=== PATIENT | female | born 1945 | race Caucasian/White ===

== ENCOUNTER 2023-05-08 19:54 | Inpatient (IN) | payer MEDICARE ==
--- NOTE | 2023-05-08 20:41 | ED ---
General Adult HPI - General Source: EMS, RN notes reviewed Mode of arrival: EMS Limitations: altered mental status <Arely Perez - Last Filed: 05/09/23 00:38> - History of Present Illness -: unknown Radiation: non-radiation Consistency: constant Improves with: none Associated Symptoms: confusion, loss of appetite, weakness Treatments Prior to Arrival: none <Moe Nation - Last Filed: 05/09/23 20:36> - General Chief complaint: Fall Stated complaint: Fall Time Seen by Provider: 05/08/23 20:08 - History of Present Illness Initial comments: 78-year-old female presents to the emergency department via EMS for fall that occurred today. Patient is a poor historian. Patient is A&O1 at baseline according to EMS. Patient cannot provide history on the fall. EMS states she has pain in her ribs. Patient does not admit to any pain. (Arely Perez) 78-year-old female Lesa was severe dementia unable to provide history. Patient cannot provide answers to questions currently. Family states patient is not acting at her baseline significantly weak complaining of pain does not seem to be acting appropriate and sent DF for evaluation. Patient presents by EMS who does help with history as well as prior charting (Moe Nation) - Related Data Home Medications Medication Instructions Recorded Confirmed Albuterol Inhaler [Ventolin Hfa 2 puff INHALATION RT-Q6H PRN 05/09/23 05/09/23 Inhaler] Apixaban [Eliquis] 5 mg PO BID 05/09/23 05/09/23 Atorvastatin [Lipitor] 40 mg PO HS 05/09/23 05/09/23 Budesonide/Formoterol Fumarate 2 puff INHALATION RT-BID 05/09/23 05/09/23 [Symbicort 160-4.5 Mcg Inhaler] Escitalopram [Lexapro] 20 mg PO DAILY 05/09/23 05/09/23 Omeprazole 20 mg PO DAILY 05/09/23 05/09/23 Solifenacin Succinate 10 mg PO DAILY 05/09/23 05/09/23 Sotalol [Betapace] 40 mg PO Q12H 05/09/23 05/09/23 Tiotropium Rufus [Spiriva] 1 puff INHALATION RT-DAILY 05/09/23 05/09/23 dilTIAZem HCL 120 mg PO DAILY 05/09/23 05/09/23 Allergies Allergy/AdvReac Type Severity Reaction Status Date / Time aspirin Allergy Anaphylaxis Verified 05/09/23 16:01 Review of Systems ROS Other: All systems not noted in ROS Statement are negative. <Arely Perez - Last Filed: 05/09/23 00:38> ROS Other: All systems not noted in ROS Statement are negative. <Moe Nation - Last Filed: 05/09/23 20:36> ROS Statement: Those systems with pertinent positive or pertinent negative responses have been documented in the HPI. Past Medical History Past Medical History: Unable to Obtain, Dementia History of Any Multi-Drug Resistant Organisms: Unobtainable Past Surgical History: Unable to Obtain Past Psychological History: Unable to Obtain Smoking Status: Unknown if ever smoked Past Alcohol Use History: Unable to Obtain Past Drug Use History: Unable to Obtain <Arely Perez - Last Filed: 05/09/23 00:38> General Exam Limitations: altered mental status (A&O x1 at baseline) General appearance: alert, in no apparent distress Head exam: Present: atraumatic, normocephalic, normal inspection Eye exam: Present: normal appearance, PERRL, EOMI ENT exam: Present: normal exam, mucous membranes moist Neck exam: Present: normal inspection. Absent: tenderness, meningismus, lymphadenopathy Respiratory exam: Present: wheezes (mild wheezes bilaterally), chest wall tenderness (right sided). Absent: rales, rhonchi, stridor Cardiovascular Exam: Present: regular rate, normal rhythm, normal heart sounds. Absent: systolic murmur, diastolic murmur, rubs, gallop, clicks GI/Abdominal exam: Present: soft, normal bowel sounds. Absent: distended, tenderness, guarding, rebound, rigid Extremities exam: Present: full ROM, normal capillary refill. Absent: tenderness, pedal edema, joint swelling, calf tenderness Back exam: Present: normal inspection. Absent: tenderness Neurological exam: Present: alert. Absent: oriented X3 (A&O1-2) Psychiatric exam: Present: normal affect, normal mood Skin exam: Present: warm, dry, intact, normal color. Absent: rash <Arely Perez - Last Filed: 05/09/23 00:38> General appearance: alert, in no apparent distress Head exam: Present: atraumatic, normocephalic, normal inspection Eye exam: Present: normal appearance, PERRL, EOMI. Absent: scleral icterus, conjunctival injection, periorbital swelling ENT exam: Present: normal exam, mucous membranes moist Neck exam: Present: normal inspection. Absent: tenderness, meningismus, lymphadenopathy Respiratory exam: Present: normal lung sounds bilaterally. Absent: respiratory distress, wheezes, rales, rhonchi, stridor Cardiovascular Exam: Present: regular rate, normal rhythm, normal heart sounds. Absent: systolic murmur, diastolic murmur, rubs, gallop, clicks GI/Abdominal exam: Present: soft, normal bowel sounds. Absent: distended, tenderness, guarding, rebound, rigid Extremities exam: Present: normal inspection, full ROM, normal capillary refill. Absent: tenderness, pedal edema, joint swelling, calf tenderness Back exam: Present: normal inspection Neurological exam: Present: alert, oriented X3, CN II-XII intact Psychiatric exam: Present: normal affect, normal mood Skin exam: Present: warm, dry, intact, normal color. Absent: rash <Moe Nation B - Last Filed: 05/09/23 20:36> Course <Moe Nation B - Last Filed: 05/09/23 20:36> Vital Signs 05/08/23 05/08/23 05/08/23 19:56 21:10 22:06 Temperature 98.8 F Pulse Rate 74 75 82 Respiratory 18 16 18 Rate Blood Pressure 151/75 152/63 170/70 O2 Sat by Pulse 96 97 98 Oximetry 05/09/23 05/09/23 05/09/23 00:00 01:00 02:13 Temperature Pulse Rate 83 87 80 Respiratory 16 16 16 Rate Blood Pressure 154/62 154/57 126/56 O2 Sat by Pulse 99 97 100 Oximetry 05/09/23 05/09/23 05/09/23 03:00 04:00 05:00 Temperature Pulse Rate 79 81 86 Respiratory 16 18 15 Rate Blood Pressure 126/56 145/60 146/66 O2 Sat by Pulse 100 Oximetry 05/09/23 05/09/23 05/09/23 06:00 08:38 09:02 Temperature Pulse Rate 77 77 79 Respiratory 16 18 17 Rate Blood Pressure 132/58 117/46 127/54 O2 Sat by Pulse 98 99 100 Oximetry 05/09/23 05/09/23 10:01 11:41 Temperature 98.0 F Pulse Rate 83 93 Respiratory 16 18 Rate Blood Pressure 136/57 142/51 O2 Sat by Pulse 96 95 Oximetry - Reevaluation(s) Reevaluation #1: Medical record is reviewed ([place]) Reevaluation #2: Patient symptoms unchanged ([place]) Reevaluation #3: Family informed results questions answered ([place]) Reevaluation #4: Was patient admitted / discharged? Hospital course, mention meds given and route, prescriptions, significant lab abnormalities, going to OR and other pertinent info. @ -78 female to the emergency department for evaluation of altered mental status fall with positive pelvic fracture. Patient admitted for pain control and trying to follow-up in regards to altered mental status whether severe worsening dementia or acute pain induced or other causes. Admitted Undiagnosed new problem with uncertain prognosis? @ -no Drug Therapy requiring intensive monitoring for toxicity (Heparin, Nitro, Insulin, Cardizem)? @ -no Were any procedures done? @ -no Diagnosis/symptom? @ -Pelvic fracture, pain control, altered mental status, weakness, falls Acute, or Chronic, or Acute on Chronic? @ -Acute on chronic Uncomplicated (without systemic symptoms) or Complicated (systemic symptoms)? @ -complicated Side effects of treatment? @ -no Exacerbation, Progression, or Severe Exacerbation? @ -no Poses a threat to life or bodily function? How? (Chest pain, USA, NH, pneumonia, PE, COPD, DKA, ARF, appy, cholecystitis, CVA, Diverticulitis, Homicidal, Suicidal, threat to staff... and all critical care pts) @ -Yes with extreme of age (Moe Nation) Reevaluation #5: Differential Altered Mental Status: Hypoglycemia, DKA, hypercapnia, ETOH, overdose, CO poisoning, trauma, myxedema coma, HTN encephalopathy, infection, encephalitis, psychosis, intercranial hemorrhage, hepatic encephalopathy, meningitis, CVA, this is not meant to be an all-inclusive list (Moe Nation) Medical Decision Making - Lab Data Result diagrams: 05/08/23 00:13 <Arely Perez - Last Filed: 05/09/23 00:38> - Lab Data Result diagrams: 05/08/23 00:13 05/08/23 00:13 - Radiology Data Radiology results: report reviewed (CT brain C-spine abdomen pelvis and pelvis computed tomography scan does show pelvic fracture, chest x-rays does show possibility of pneumonia), image reviewed <Faisal Nationophkimmy Evangelista - Last Filed: 05/09/23 20:36> - Medical Decision Making Was pt. sent in by a medical professional or institution (, PA, MANAGER CALL, urgent care, hospital, or [facility]...) When possible be specific @ -[No] Did you speak to anyone other than the patient for history (EMS, parent, family, police, friend...)? What history was obtained from this source @ -[No] Did you review nursing and triage notes (agree or disagree)? Why? @ -[I reviewed and agree with nursing and triage notes] Were old charts reviewed (outside hosp., previous admission, EMS record, old EKG, old radiological studies, urgent care reports/EKG's, [facility] records)? Report findings @ -[No old charts were reviewed] Differential Diagnosis (chest pain, altered mental status, abdominal pain women, abdominal pain men, vaginal bleeding, weakness, fever, dyspnea, syncope, headache, dizziness, GI bleed, back pain, seizure, CVA, palpatations, mental health, musculoskeletal)? @ -[Differential Altered Mental Status: Hypoglycemia, DKA, hypercapnia, ETOH, overdose, CO poisoning, trauma, myxedema coma, HTN encephalopathy, infection, encephalitis, psychosis, intercranial hemorrhage, hepatic encephalopathy, meningitis, CVA, this is not meant to be an all-inclusive list] EKG interpreted by me (3pts min.). @ -[none] X-rays interpreted by me (1pt min.). @ -[XR ribs and chest shows no evidence of acute fracture, XR pelvis showed fracture of unknown chronicity ] CT interpreted by me (1pt min.). @ -[CT brain shows no evidence of acute intracranial hemorrhage] U/S interpreted by me (1pt. min.). @ -[None done] What testing was considered but not performed or refused? (CT, X-rays, U/S, labs)? Why? @ -[None] What meds were considered but not given or refused? Why? @ -[None] Did you discuss the management of the patient with other professionals (professionals i.e. , PA, MANAGER CALL, lab, RT, psych nurse, social work instructor, senior communications specialist, teacher, immigration services officer, family independence case manager)? Give summary @ -[No] Was smoking cessation discussed for >3mins.? @ -[No] Was critical care preformed (if so, how long)? @ -[No] Were there social determinants of health that impacted care today? How? (Homelessness, low income, unemployed, alcoholism, drug addiction, transportation, low edu. Level, literacy, decrease access to med. care, prison, rehab)? @ -[No] Was there de-escalation of care discussed even if they declined (Discuss DNR or withdrawal of care, Hospice)? DNR status @ -[No] What co-morbidities impacted this encounter? (DM, HTN, Smoking, COPD, CAD, Cancer, CVA, ARF, Chemo, Hep., AIDS, mental health diagnosis, sleep apnea, m orbid obesity)? @ -[None] Was patient admitted / discharged? Hospital course, mention meds given and route, prescriptions, significant lab abnormalities, going to OR and other pertinent info. @ -[Patient presented to emergency department chief complaint of fall. Patient is a poor historian and poor history was obtained from EMS who states that the patient fell and is having rib pain. Initially had no contact information for the patient's family. CT brain Mild ventriculomegaly likely due to central cerebral atrophy; moderate confluent burden of chronic small vessel ischemic disease; complete opacification of bilateral mastoid air cells Family was contacted after computed tomography scan and x-ray obtained. Family states that the patient seems to be more confused than she usually is. The state that she had a urine sample taken at her primary care providers office and it looked suspicious for a UTI but she has not been on antibiotics. UA was obtained which shows no evidence of infection. XR pelvis showed fracture of unknown chronicity.. Patient signed out to Dr. Nation at 0039 pending CMP and pelvis CT ] Undiagnosed new problem with uncertain prognosis? @ -[No] Drug Therapy requiring intensive monitoring for toxicity (Heparin, Nitro, Insulin, Cardizem)? @ -[No] Were any procedures done? @ -[No] Diagnosis/symptom? @ -[default] Acute, or Chronic, or Acute on Chronic? @ -[default] Uncomplicated (without systemic symptoms) or Complicated (systemic symptoms)? @ -[default] Side effects of treatment? @ -[No] Exacerbation, Progression, or Severe Exacerbation? @ -[No] Poses a threat to life or bodily function? How? (Chest pain, USA, NH, pneumonia, PE, COPD, DKA, ARF, appy, cholecystitis, CVA, Diverticulitis, Homicidal, Suicidal, threat to staff... and all critical care pts) @ -[No] (Arely Perez) 78 female who presents to the ER today for evaluation will admit for pelvic fracture cause of altered mental status. Patient is found here to have pneu monia as well as a fracture. Patient has no significant findings here in the emergency department and will be admitted for further evaluation management (Moe Nation) - Lab Data Lab Results 05/08/23 05/08/23 05/08/23 Range/Units 00:13 00:13 00:13 WBC 10.0 (3.8-10.6) k/uL RBC 3.30 L (3.80-5.40) m/uL Hgb 9.4 L (11.4-16.0) gm/dL Hct 31.0 L (34.0-46.0) % MCV 94.2 (80.0-100.0) fL MCH 28.4 (25.0-35.0) pg MCHC 30.1 L (31.0-37.0) g/dL RDW 15.4 (11.5-15.5) % Plt Count 238 (150-450) k/uL MPV 8.2 Neutrophils % 71 % Lymphocytes % 19 % Monocytes % 6 % Eosinophils % 1 % Basophils % 1 % Neutrophils # 7.1 (1.3-7.7) k/uL Lymphocytes # 1.9 (1.0-4.8) k/uL Monocytes # 0.6 (0-1.0) k/uL Eosinophils # 0.1 (0-0.7) k/uL Basophils # 0.1 (0-0.2) k/uL Hypochromasia Marked Sodium 136 L (137-145) mmol/L Potassium 5.1 (3.5-5.1) mmol/L Chloride 98 (98-107) mmol/L Carbon Dioxide 34 H (22-30) mmol/L Anion Gap 4 mmol/L BUN 15 (7-17) mg/dL Creatinine 0.32 L (0.52-1.04) mg/dL Est GFR (CKD-EPI)AfAm >90 (>60 ml/min/1.73 sqM) Est GFR (CKD-EPI)NonAf >90 (>60 ml/min/1.73 sqM) Glucose 110 H (74-99) mg/dL Plasma Lactic Acid Bennie 0.7 (0.7-2.0) mmol/L Calcium 8.8 (8.4-10.2) mg/dL Total Bilirubin 0.8 (0.2-1.3) mg/dL AST 36 (14-36) U/L ALT 14 (4-34) U/L Alkaline Phosphatase 69 (38-126) U/L Total Protein 6.7 (6.3-8.2) g/dL Albumin 3.5 (3.5-5.0) g/dL Urine Color Urine Appearance (Clear) Urine pH (5.0-8.0) Ur Specific Garland (1.001-1.035) Urine Protein (Negative) Urine Glucose (UA) (Negative) Urine Ketones (Negative) Urine Blood (Negative) Urine Nitrite (Negative) Urine Bilirubin (Negative) Urine Urobilinogen (<2.0) mg/dL Ur Leukocyte Esterase (Negative) 05/08/23 Range/Units 23:29 WBC (3.8-10.6) k/uL RBC (3.80-5.40) m/uL Hgb (11.4-16.0) gm/dL Hct (34.0-46.0) % MCV (80.0-100.0) fL MCH (25.0-35.0) pg MCHC (31.0-37.0) g/dL RDW (11.5-15.5) % Plt Count (150-450) k/uL MPV Neutrophils % % Lymphocytes % % Monocytes % % Eosinophils % % Basophils % % Neutrophils # (1.3-7.7) k/uL Lymphocytes # (1.0-4.8) k/uL Monocytes # (0-1.0) k/uL Eosinophils # (0-0.7) k/uL Basophils # (0-0.2) k/uL Hypochromasia Sodium (137-145) mmol/L Potassium (3.5-5.1) mmol/L Chloride (98-107) mmol/L Carbon Dioxide (22-30) mmol/L Anion Gap mmol/L BUN (7-17) mg/dL Creatinine (0.52-1.04) mg/dL Est GFR (CKD-EPI)AfAm (>60 ml/min/1.73 sqM) Est GFR (CKD-EPI)NonAf (>60 ml/min/1.73 sqM) Glucose (74-99) mg/dL Plasma Lactic Acid Bennie (0.7-2.0) mmol/L Calcium (8.4-10.2) mg/dL Total Bilirubin (0.2-1.3) mg/dL AST (14-36) U/L ALT (4-34) U/L Alkaline Phosphatase (38-126) U/L Total Protein (6.3-8.2) g/dL Albumin (3.5-5.0) g/dL Urine Color Light Yellow Urine Appearance Clear (Clear) Urine pH 6.5 (5.0-8.0) Ur Specific [place] 1.012 (1.001-1.035) Urine Protein Negative (Negative) Urine Glucose (UA) Negative (Negative) Urine Ketones Negative (Negative) Urine Blood Negative (Negative) Urine Nitrite Negative (Negative) Urine Bilirubin Negative (Negative) Urine Urobilinogen <2.0 (<2.0) mg/dL Ur Leukocyte Esterase Negative (Negative) Disposition Is patient prescribed a controlled substance at d/c from ED?: No Time of Disposition: 22:20 <Arely Perez - Last Filed: 05/09/23 00:38> Is patient prescribed a controlled substance at d/c from ED?: No <Moe Nation - Last Filed: 05/09/23 20:36> Clinical Impression: Fall, Weakness, Pelvic fracture, Community acquired pneumonia, Altered mental status Disposition: ADMITTED IP TO [facility] Condition: Fair
--- NOTE | 2023-05-08 21:11 | XR ---
EXAMINATION TYPE: XR ribs RT w pa chest xray DATE OF EXAM: 05/08/2023 COMPARISON: None HISTORY: 78-year-old female pain after fall TECHNIQUE: 5 views FINDINGS: Heart borderline enlarged. Hyperinflation. There is some patchy retrocardiac basilar opacity present. No displaced right rib fracture is seen. IMPRESSION: Borderline cardiomegaly and COPD. There is some patchy retrocardiac and left basilar atelectasis vers us developing infiltrate. Correlate with symptoms. No displaced right rib fracture seen.
--- NOTE | 2023-05-08 21:24 | CT ---
EXAMINATION TYPE: CT brain tom fung DATE OF EXAM: 05/08/2023 COMPARISON: None HISTORY: 78-year-old female with pain after fall CT DLP: 1470 mGycm Automated exposure control for dose reduction was used. Technique: Examination of the head was done in axial plane without intravenous contrast. Coronal and sagittal reconstructions performed. CT of the cervical spine was obtained in axial plane without intravenous injection of contrast mater ial. Coronal and sagittal reformatted images were obtained from the axial views for evaluation of f ractures, spinal alignment and canal. FINDINGS: Head: There is no evidence of acute intracranial hemorrhage, acute ischemic changes, mass, mass-effect, or extra-axial fluid collection. There is no effacement of cerebral sulci or basal subarachnoid cister ns. Prominent dystrophic calcifications along the midline falx. There is mild ventriculomegaly with Kilo's ratio calculated at 0.36. Moderate patchy and confluent matter hypodensities in both cerebral hemispheres. There is no midline shift. Padilla-white matter distinction is preserved. Mild mucosal thickening ethmoid air cells. Extensive opacification of the bilateral mastoid air cells . This extends into the right middle ear cavity. Cerumen within the left greater than right external auditory canals. Orbits and globes are intact. Cervical spine: Patient is partially edentulous with periodontal disease demonstrated. Moderate to advanced multilevel spondylotic change. Reversal of the normal cervical lordosis. Degener ative grade 1 retrolisthesis C5-C6 and C6-C7. Grade 1 anterolisthesis C7-T1 and also C3-C4. Disc osteophyte complex at C4-C5 demonstrates to a mild spinal canal stenosis. Mild to moderate at C5 -C6. No acute fracture seen of the cervical spine. No craniocervical junction abnormality, predental space widening, or prevertebral soft tissue swellin g. Degenerative change of the C1 dens articulation. Variable moderate to severe neuroforaminal stenoses throughout the cervical spine. Sagittal and coronal reformatted images confirm above findings. COMBINED IMPRESSION: 1. Mild ventriculomegaly likely due to central cerebral atrophy. Correlate to exclude a component of NPH. 2. Otherwise, there is moderate confluent burden of chronic small vessel ischemic disease. No acute i ntracranial abnormality seen. 3. Complete opacification of the bilateral mastoid air cells. Fluid extends into the right middle ear cavity. Correlate for possible mastoiditis/otomastoiditis. 4. Moderate to advanced multilevel spondylotic change. Degenerative grade 1 spondylolisthesis C3-C4, C5-C6, C6-C7, and C7-T1. No acute fracture seen of the cervical spine.
[2023-05-08 23:40] LABS: Appearance,Urine Clear (Clear); Bilirubin,Urine Negative (Negative); Blood,Urine Negative (Negative); Color,Urine Light Yellow; Glucose,Urine (UA) Negative (Negative); Ketones,Urine Negative (Negative); Leukocyte Esterase,Urine Negative (Negative); Nitrite,Urine Negative (Negative); PH, Urine 6.5 (5.0-8.0); Protein,Urine Negative (Negative); Specific Gravity,Urine 1.012 (1.001-1.035); Urobilinogen,Urine <2.0 mg/dL (<2.0)
--- NOTE | 2023-05-09 00:04 | XR ---
EXAMINATION TYPE: XR Hip 2 views LT and AP Pelvis DATE OF EXAM: 05/08/2023 Comparison: None Clinical History: 78-year-old female fall with pain Findings: The technologist notes best possible images. Repeated multiple times. Prominent bowel content. Modera te stool in the right side of the abdomen and pelvis. There is a fracture of the left pubic body whic h is age indeterminate. Very limited due to patient positioning. The right hip is externally rotated limiting visualization of the lower right femoral neck. No obvious displaced left rib fracture seen. Impression: Markedly limited exam. Multiple attempts were made at positioning the patient. There appears to be a fracture of the left pubic body but the chronicity is unclear. It may be old. Clinically correlate. N o obvious displaced hip fracture seen. Again, assessment is limited.
[2023-05-09 00:32] LABS: Basophils # (A) 0.1 k/uL (0-0.2); Basophils % (A) 1 %; Eosinophils # (A) 0.1 k/uL (0-0.7); Eosinophils % (A) 1 %; HGB 9.4 gm/dL (11.4-16.0); Hypochromasia Marked; Lymphocytes # (A) 1.9 k/uL (1.0-4.8); Lymphocytes % (A) 19 %; MCH 28.4 pg (25.0-35.0); MCHC 30.1 g/dL (31.0-37.0); MCV 94.2 fL (80.0-100.0); Mean Platelet Volume 8.2; Monocytes # (A) 0.6 k/uL (0-1.0); Monocytes % (A) 6 %; Neutrophils # (A) 7.1 k/uL (1.3-7.7); Neutrophils % (A) 71 %; Platelet Count 238 k/uL (150-450); RDW 15.4 % (11.5-15.5)
[2023-05-09 00:43] LABS: ALT 14 U/L (4-34); African American GFR (CKD) >90 (>60 ml/min/1.73 sqM); Anion Gap 4 mmol/L; Blood Urea Nitrogen 15 mg/dL (7-17); Calcium 8.8 mg/dL (8.4-10.2); Carbon Dioxide 34 mmol/L (22-30); Chloride 98 mmol/L (98-107); Glucose 110 mg/dL (74-99); Non-African American GFR(CKD) >90 (>60 ml/min/1.73 sqM); Sodium 136 mmol/L (137-145); Total Bilirubin 0.8 mg/dL (0.2-1.3)
[2023-05-09 00:44] LABS: Albumin 3.5 g/dL (3.5-5.0); Potassium 5.1 mmol/L (3.5-5.1); Total Protein 6.7 g/dL (6.3-8.2)
[2023-05-09 00:45] LABS: AST 36 U/L (14-36); Alkaline Phosphatase 69 U/L (38-126)
--- NOTE | 2023-05-09 01:45 | CT ---
EXAMINATION TYPE: CT abdomen pelvis w con, CT pelvis w con DATE OF EXAM: 05/09/2023 COMPARISON: Radiograph same day HISTORY: 78-year-old female with pain after fall, Pain, pelvic fracture. TECHNIQUE: Contiguous axial scanning of the abdomen and pelvis following administration of 100 ml Iso mary 300 IV contrast. Additional MSK pelvis exam performed. 3-D reconstructions generated on a [employer] ed independent workstation. Delayed images through the kidneys and coronal/sagittal reconstructions p erformed. CT DLP: 315 mGycm Automated exposure control for dose reduction was used. FINDINGS: ABDOMEN/PELVIS: There is some mild patchy densities in the lower lungs with bronchial wall thickening. There is a 6 m m pulmonary nodule posterior left base that can be reassessed in 3 months. No pleural effusion. Moderate atherosclerotic calcifications throughout the abdominal aorta and iliac arteries. Mild gener alized anasarca change. 1.4 cm cyst posterior right liver lobe. Portal venous system is patent. No biliary ductal dilatation. Gallbladder, adrenal glands, left kidney, spleen, and pancreas within normal limits. 8 mm cortical cyst lateral right kidney. Symmetric uptake and excretion of contrast from both kidneys . No dilated small bowel, free fluid, free air. No mesenteric or retroperitoneal lymphadenopathy. Moderate stool in the right side of the colon. No pericolonic inflammatory change seen. Prominent distention of the urinary bladder. Suspect a small postmenopausal uterus, not well delineat ed due to adjacent clustered small bowel loops. Small pelvic phleboliths. Ovaries not clearly delinea martha. No abnormal fluid collection in the pelvis or pelvic lymphadenopathy. Generalized anasarca change persists. BONES: Anterior wedge deformity of T11 with mild retropulsion into the ventral spinal canal. Suspect a subac unga to chronic injury. There may be minimal paravertebral soft tissue swelling here. BONY PELVIS: There is a vertical vertical fracture of the left sacroiliac. SI joints appear intact. Moderate degenerative change of the hips. Comminuted fracture of the pubic body appears acute. There is focal sclerosis of the left ischial tuberosity and overlying soft tissue thickening extendin g down to the buttock region, possible site of previous decubitus ulcer and sequela of prior infectio n. The degree of osteopenia otherwise limits the evaluation. Note displaced fracture is otherwise seen. IMPRESSION: 1. GENERALIZED ANASARCA CHANGE. CORRELATE FOR THIRD SPACING. 2. MILD PATCHY BIBASILAR DENSITIES COULD REPRESENT AREAS OF SCARRING, ASPIRATION, INTERSTITIAL PNEUMO NITIS, OR ATYPICAL PNEUMONIAS. RECOMMEND THREE-MONTH FOLLOW-UP CT TO REASSESS A 6 MM LEFT BASILAR PUL MONARY NODULE. 3. MODERATE STOOL IN THE RIGHT SIDE OF THE COLON. 4. T11 ANTERIOR WEDGE DEFORMITY COULD BE SUBACUTE OR CHRONIC. CLINICALLY CORRELATE. MILD RETROPULSION INTO THE VENTRAL SPINAL CANAL. 5. ZONE 2 VERTICAL LEFT SACRAL ALAR FRACTURE. 6. COMMINUTED ACUTE FRACTURE OF THE LEFT PUBIC BODY. 7. SCLEROSIS OF THE LEFT ISCHIAL TUBEROSITY LIKELY SEQUELA OF PRIOR INFECTION/INFLAMMATION. THERE IS OVERLYING SOFT TISSUE THICKENING EXTENDING TO THE GLUTEAL SKIN SURFACE, POSSIBLY SITE OF PREVIOUS DEC UBITUS ULCER. CLINICALLY CORRELATE. 8. MODERATE BILATERAL HIP OA.
[2023-05-09] MEDS ORDERED: ONDANSETRON 4 MG/2 ML VIAL IVP PRN (02:19)
[2023-05-09] MEDS ORDERED: NALOXONE 0.4 MG/ML 1 ML VIAL IV PRN (02:19)
[2023-05-09] MEDS ORDERED: AZITHROMYCIN 500 MG in SODIUM CHLORIDE 0.9% 250 ML IVPB STA (02:22)
[2023-05-09] MEDS: SODIUM CHLORIDE 0.9% 1,000 ML IV SCH ×3 (02:55→21:36)
[2023-05-09] MEDS: MORPHINE SULFATE 4 MG/ML SYRINGE IV PRN ×2 (05:31→18:14)
[2023-05-09] MEDS: PANTOPRAZOLE 40 MG/10 ML VIAL IV SCH (08:59)
--- NOTE | 2023-05-09 13:11 | P.CNOR ---
History of Present Illness - [facility] Consult date: 05/09/23 Consult reason: other (Chronic pubic rami fracture) History of present illness: History of Presenting Illness Patient is an 78-year-old female that presents to the emergency department via EMS for a fall. Patient is a poor historian. Currently is alert and oriented 1. 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 Son states that Jessica has all of her history and knows patient well. Patient's son states that patient is normally alert and oriented with mild dementia. Patient lives at home with family. She is normally ambulatory with walker. He states she was sitting in chair with four family members present and she stood up and attempted to walk without her walker and fell. Son is at work and not able to provided any more information at this time. Patient seen and examined in room. Patient is resting comfortable in bed. At this time patient is unable to answer any questions. Patient does cry out when attempting to assess bilateral upper and lower extremities. Exam is limited. Review of Systems Pertinent positives and negatives as discussed in HPI, a complete review of systems was performed and all other systems are negative. Physical Examination Physical exam is limited due to patient mental status and ability to participate. Pain is reproduced with logroll. Assessment and Plan Fall from standing Comminuted acute fracture of the left pubic body Complex medical comorbidities At this time we do not recommend any emergent/urgent orthopedic surgical intervention. Patient may follow-up with Dr. Hall office for further evaluation as needed. Orthopedics is signing off at this time. Please do not hesitate to contact us for any further questions. 2. Appreciate medical management 3. Pain management - continue with IV and oral medications, anti- inflammatories. Patient may benefit from trial of steroids. 6. PT/OT - weightbearing as tolerated with a walker. 7. Appreciate consult I reviewed and discussed this case with my attending Dr. Hall, whom has reviewed this chart and films and is in agreement with assessment and plan of care as outlined above. I have personally seen and examined the patient, performed the documentation and the assessment and plan as written. Number of minutes spent on the visit: [ ]. Past Medical History Past Medical History: Dementia Additional Past Medical History / Comment(s): hypotension, dementia, fq falls, T 11 fracture 2022 History of Any Multi-Drug Resistant Organisms: Unobtainable Past Surgical History: Unable to Obtain Past Psychological History: Unable to Obtain Smoking Status: Unknown if ever smoked Past Alcohol Use History: Unable to Obtain Past Drug Use History: Unable to Obtain Medications and Allergies Allergies Allergy/AdvReac Type Severity Reaction Status Date / Time asprin Allergy Anaphylaxis Uncoded 05/09/23 02:31 Results - Labs Labs: Abnormal Lab Results - Last 24 Hours (Table) 05/08/23 05/08/23 Range/Units 00:13 00:13 RBC 3.30 L (3.80-5.40) m/uL Hgb 9.4 L (11.4-16.0) gm/dL Hct 31.0 L (34.0-46.0) % MCHC 30.1 L (31.0-37.0) g/dL Sodium 136 L (137-145) mmol/L Carbon Dioxide 34 H (22-30) mmol/L Creatinine 0.32 L (0.52-1.04) mg/dL Glucose 110 H (74-99) mg/dL H & H 05/08/23 Range/Units 00:13 Hgb 9.4 L (11.4-16.0) gm/dL Hct 31.0 L (34.0-46.0) % Result Diagrams: 05/08/23 00:13 05/08/23 00:13
[2023-05-09] MEDS ORDERED: ACETAMINOPHEN TAB 325 MG TAB PO PRN (14:05)
[2023-05-09] MEDS ORDERED: IPRATROPIUM-ALBUTEROL 3 ML NEB INHALATION PRN (14:10)
--- NOTE | 2023-05-09 14:10 | P.HPIM ---
History of Present Illness H&P Date: 05/09/23 Patient is a 78-year-old female with history of dementia, atrial fibrillation, possibly coronary artery disease, dyslipidemia, COPD, depression presenting after a fall. Patient is a poor historian. Reportedly, patient is on Lipitor with a walker, normally alert and oriented with some dementia. Patient lives at home with family. Patient was supposed to go to the clinic in [place], but was brought to our facility. She was sitting in a chair with 4 family members present, suddenly stood up and attempted to walk without a walker and fell. Attempted to call son, no answer. In the ED, temperature was 98.8, pulse 74, blood pressure 151/75, saturating at 96% on room air. Now requiring 4 L nasal cannula saturating at 90%. Chest x- ray shows possible infiltrate. Head CT mild ventriculomegaly, possible component of NPH, chronic small vessel ischemic disease, no acute abnormalities, possible mastoiditis/auto mastoiditis, no acute fractures. Abdomen pelvis CT shows generalized anasarca, interstitial pneumonitis, 6 mm left basilar pulmonary nodule, constipation, Fortical left sacral alar fracture, comminuted acute fracture of left pubic body. Laboratory workup shows hemoglobin 9.4, sodium 136, potassium 5.1, creatinine 0.32, urinalysis negative. Patient Pertinent positives and negatives as discussed in HPI, a complete review of systems was performed and all other systems are negative. Patient seen and examined at bedside. Vital signs reviewed General: nontoxic, no distress, appears at stated age, thin-appearing Derm: warm, dry Head: atraumatic, normocephalic, symmetric Eyes: EOMI, no lid lag, anicteric sclera, pupils equal round reactive to light ENT: Nose and ears atraumatic Neck: No thyromegaly, supple Mouth: no lip lesion, mucus membranes moist Cardiovascular: S1S2 reg, no murmur, no edema Lungs: clear to auscultation bilateral, no rhonchi, no rales, no wheeze, no accessory muscle use Abdominal: soft, nontender to palpation, no guarding, no appreciable organomegaly Neuro: No focal deficits, Psych: Somnolent, oriented 1 Assessment/Plan: Acute hypoxic respiratory failure Suspected community-acquired pneumonia Fall from standing Comminuted acute fracture of left pubic Body Acute metabolic encephalopathy History of dementia Atrial fibrillation on anticoagulation Coronary artery disease Dyslipidemia COPD, not in exacerbation Depression 6 mm left basilar pulmonary nodule, repeat CT in 6 months Constipation -Encephalopathy likely related to acute delirium in the setting of acute fracture and possible community acquired pneumonia -Continue to wean oxygen -Continue IV ceftriaxone and azithromycin -Blood cultures, sputum cultures, pro-calcitonin ordered -Pain control with Tylenol, IV morphine as needed -Reconcile medications once available -Senna twice a day The patient is admitted with an anticipated greater than 2 midnight stay as inpatient status for evaluation of no acute metabolic encephalopathy. Surrogate decision-maker: Son CODE STATUS: Full code DVT prophylaxis: SCDs Anticipated discharge date: pending clinical course Anticipated discharge place: pending clinical course A total of 66 minutes was spent on the care of this complex patient more than 50% of the time was spent in counseling and care coordination. Past Medical History Past Medical History: Dementia Additional Past Medical History / Comment(s): hypotension, dementia, fq falls, T 11 fracture 2022 History of Any Multi-Drug Resistant Organisms: Unobtainable Past Surgical History: Unable to Obtain Past Psychological History: Unable to Obtain Smoking Status: Unknown if ever smoked Past Alcohol Use History: Unable to Obtain Past Drug Use History: Unable to Obtain Medications and Allergies Allergies Allergy/AdvReac Type Severity Reaction Status Date / Time asprin Allergy Anaphylaxis Uncoded 05/09/23 02:31 Physical Exam Vitals: Vital Signs Temp Pulse Pulse Resp BP BP Pulse Ox 05/09/23 12:41 98.6 F 95 18 147/62 90 L 05/09/23 11:41 98.0 F 93 18 142/51 95 05/09/23 10:01 83 16 136/57 96 05/09/23 09:02 79 17 127/54 100 05/09/23 08:38 77 18 117/46 99 05/09/23 06:00 77 16 132/58 98 05/09/23 05:00 86 15 146/66 05/09/23 04:00 81 18 145/60 05/09/23 03:00 79 16 126/56 100 05/09/23 02:13 80 16 126/56 100 05/09/23 01:00 87 16 154/57 97 05/09/23 00:00 83 16 154/62 99 05/08/23 22:06 82 18 170/70 98 05/08/23 21:10 75 16 152/63 97 05/08/23 19:56 98.8 F 74 18 151/75 96 Intake and Output 05/08/23 05/09/23 05/09/23 22:59 06:59 14:59 Output Total 550 Balance -550 Output: Urine 550 Female - External 550 Other: Weight 71.214 kg 71.214 kg Results CBC & Chem 7: 05/08/23 00:13 05/08/23 00:13 Labs: Abnormal Lab Results - Last 24 Hours (Table) 05/08/23 05/08/23 Range/Units 00:13 00:13 RBC 3.30 L (3.80-5.40) m/uL Hgb 9.4 L (11.4-16.0) gm/dL Hct 31.0 L (34.0-46.0) % MCHC 30.1 L (31.0-37.0) g/dL Sodium 136 L (137-145) mmol/L Carbon Dioxide 34 H (22-30) mmol/L Creatinine 0.32 L (0.52-1.04) mg/dL Glucose 110 H (74-99) mg/dL
[2023-05-09] MEDS: ACETAMINOPHEN IV (For NPO) 1,000 MG in EMPTY BAG 1 BAG IVPB SCH (15:26)
[2023-05-09 20:03] LABS: Glucose,Whole Blood 94 mg/dL (70-110)
[2023-05-09] MEDS: SENNOSIDES 8.6 MG TAB PO SCH (21:36)
[2023-05-10] MEDS: ACETAMINOPHEN IV (For NPO) 1,000 MG in EMPTY BAG 1 BAG IVPB SCH ×3 (01:04→16:11)
[2023-05-10] MEDS: AZITHROMYCIN 500 MG in SODIUM CHLORIDE 0.9% 250 ML IVPB SCH (04:22)
[2023-05-10] MEDS: SENNOSIDES 8.6 MG TAB PO SCH ×2 (07:36→21:58)
[2023-05-10] MEDS: PANTOPRAZOLE 40 MG/10 ML VIAL IV SCH (07:36)
[2023-05-10] MEDS ORDERED: ALBUTEROL NEBULIZED 2.5 MG/3 ML INHALATION PRN (07:54)
[2023-05-10 08:42] LABS: Basophils # (A) 0.04 X 10*3/uL (0.00-0.10); Basophils % (A) 0.5 %; Eosinophils # (A) 0.12 X 10*3/uL (0.04-0.35); Eosinophils % (A) 1.6 %; HCT 29.7 % (37.2-46.3); HGB 7.9 d/dL (12.0-15.0); Lymphocytes # (A) 1.46 X 10*3/uL (0.90-5.00); MCH 27.4 pg (27.0-32.0); MCHC 26.6 d/dL (32.0-37.0); MCV 103.1 FL (80.0-97.0); Mean Platelet Volume 11.2 FL (9.5-12.2); Monocytes % (A) 9.1 %; NRBC Per 100 WBC 0 X 10*3/uL (0.00-0.01); Neutrophils # (A) 5.35 X 10*3/uL (1.80-7.70); Neutrophils % (A) 69.5 %; Platelet Count 182 X 10*3/uL (140-440); RBC 2.88 X 10*6/uL (4.10-5.20); RDW 14.9 % (11.5-14.5); WBC 7.69 X 10*3/uL (4.50-10.00)
[2023-05-10] MEDS: IPRATROPIUM 0.5 MG/2.5 ML NEBU INHALATION SCH ×4 (08:43→21:25)
[2023-05-10] MEDS: SYMBICORT 160-4.5 MCG INHALER INHALATION SCH ×2 (08:44→21:25)
[2023-05-10] MEDS ORDERED: NON FORMULARY DRUG (Omeprazole [Omeprazole] 20 MG Capsule.Dr) PO SCH (09:00)
[2023-05-10] MEDS: SOTALOL 80 MG TAB PO SCH ×2 (09:13→21:59)
[2023-05-10] MEDS: DILTIAZEM CD 120 MG CAP.ER.24H PO SCH (09:13)
[2023-05-10] MEDS: ESCITALOPRAM 20 MG TAB PO SCH (09:13)
[2023-05-10 09:24] LABS: ALT 8 U/L (8-44); AST 15 U/L (13-35); Albumin 3.3 d/dL (3.8-4.9); Albumin/Globulin Ratio 1.65 Ratio (1.60-3.17); Alkaline Phosphatase 78 U/L (41-126); BUN/Creat Ratio 29.25 Ratio (12.00-20.00); Blood Urea Nitrogen 11.7 mg/dL (9.0-27.0); Calcium 8.8 mg/dL (8.7-10.3); Carbon Dioxide 31.8 mmol/L (21.6-31.8); Chloride 104 mmol/L (96-109); Glucose 68 mg/dL (70-110); Magnesium 1.8 mg/dL (1.5-2.4); Potassium 4.5 mmol/L (3.5-5.5); Sodium 145 mmol/L (135-145); Total Bilirubin <0.2 mg/dL (0.3-1.2); Total Protein 5.3 d/dL (6.2-8.2)
[2023-05-10 09:41] LABS: Glucose,Whole Blood 81 mg/dL (70-110)
[2023-05-10] MEDS: SODIUM CHLORIDE 0.9% 1,000 ML IV SCH (11:48)
--- NOTE | 2023-05-10 14:41 | P.PN ---
Subjective Progress Note Date: 05/10/23 Hospital Course: 78-year-old female with history of dementia, atrial fibrillation, possibly coronary artery disease, dyslipidemia, COPD, depression presenting after a fall. In the ED, temperature was 98.8, pulse 74, blood pressure 151/75, saturating at 96% on room air. Now requiring 4 L nasal cannula saturating at 90%. Chest x- ray shows possible infiltrate. Head CT mild ventriculomegaly, possible component of NPH, chronic small vessel ischemic disease, no acute abnormalities, possible mastoiditis/auto mastoiditis, no acute fractures. Abdomen pelvis CT shows generalized anasarca, interstitial pneumonitis, 6 mm left basilar pulmonary nodule, constipation, Fortical left sacral alar fracture, comminuted acute fracture of left pubic body. Laboratory workup shows hemoglobin 9.4, sodium 136, potassium 5.1, creatinine 0.32, urinalysis negative. Patient admitted for hypoxic respiratory failure, acute metabolic encephalopathy, fracture. Subjective: Patient seen and examined at bedside. No acute events overnight. Pertinent positives and negatives as discussed above, a complete review of systems was performed and all other systems are negative. Vitals Signs Reviewed. General: nontoxic, no distress, appears at stated age, thin-appearing Derm: warm, dry Head: atraumatic, normocephalic, symmetric Eyes: EOMI, no lid lag, anicteric sclera, pupils equal round reactive to light ENT: Nose and ears atraumatic Neck: No thyromegaly, supple Mouth: no lip lesion, mucus membranes moist Cardiovascular: S1S2 reg, no murmur, no edema Lungs: clear to auscultation bilateral, no rhonchi, no rales, no wheeze, no accessory muscle use Abdominal: soft, nontender to palpation, no guarding, no appreciable organomegaly Neuro: No focal deficits, Psych: Awake and alert, oriented 1 Data Reviewed Today: Pertinent Labs: Hemoglobin 7.9, MCV 103, sodium 145, potassium 4.5, creatinine 0.4, glucose 81, B12 501, TSH 1.51 Imaging: No new imaging Assessment and Plan: Acute hypoxic respiratory failure Suspected community-acquired pneumonia Fall from standing Comminuted acute fracture of left pubic Body Acute metabolic encephalopathy History of dementia Atrial fibrillation on anticoagulation Coronary artery disease Dyslipidemia COPD, not in exacerbation Depression 6 mm left basilar pulmonary nodule, repeat CT in 6 months Constipation Acute or chronic macrocytic anemia -Encephalopathy likely related to acute delirium in the setting of acute fracture and possible community acquired pneumonia -Continue to wean oxygen -Continue IV ceftriaxone and azithromycin -Blood cultures, sputum cultures, pro-calcitonin negative -However, given patient is slightly improved, we'll continue the antibiotics for now -Pain control with Tylenol, IV morphine as needed -Senna twice a day -No active blood loss, continued to monitor his CBC DVT ppx: Eliquis Code status: Full code Anticipated discharge place: Pending clinical course Anticipated discharge time: Pending clinical course Objective - Vital Signs Vital signs: Vital Signs Temp 98.6 F 05/10/23 14:00 Pulse 85 05/10/23 14:00 Resp 18 05/10/23 14:00 BP 138/63 05/10/23 14:00 Pulse Ox 92 L 05/10/23 14:00 FiO2 Intake & Output 05/09/23 05/10/23 05/10/23 18:59 06:59 18:59 Intake Total 325 Output Total 650 Balance -650 325 Weight 71.214 kg Intake: Oral 325 Output: Urine 650 Female - External 550 Other: Voiding Method Indwelling Catheter # Voids 0 - Labs CBC & Chem 7: 05/10/23 05:10 05/10/23 05:10 Labs: Abnormal Lab Results - Last 24 Hours (Table) 05/10/23 05/10/23 Range/Units 05:10 05:10 RBC 2.88 L (4.10-5.20) X 10*6/uL Hgb 7.9 L (12.0-15.0) d/dL Hct 29.7 L (37.2-46.3) % MCV 103.1 H (80.0-97.0) FL MCHC 26.6 L (32.0-37.0) d/dL RDW 14.9 H (11.5-14.5) % Creatinine 0.4 L (0.6-1.5) mg/dL BUN/Creatinine Ratio 29.25 H (12.00-20.00) Ratio Glucose 68 L (70-110) mg/dL Total Bilirubin <0.2 L (0.3-1.2) mg/dL Total Protein 5.3 L (6.2-8.2) d/dL Albumin 3.3 L (3.8-4.9) d/dL
[2023-05-10] MEDS: ATORVASTATIN 40 MG TAB PO SCH (21:58)
[2023-05-11] MEDS: AZITHROMYCIN 500 MG in SODIUM CHLORIDE 0.9% 250 ML IVPB SCH (03:50)
[2023-05-11] MEDS: PANTOPRAZOLE 40 MG/10 ML VIAL IV SCH (08:26)
[2023-05-11] MEDS: IPRATROPIUM 0.5 MG/2.5 ML NEBU INHALATION SCH ×5 (08:29→20:57)
[2023-05-11] MEDS: SYMBICORT 160-4.5 MCG INHALER INHALATION SCH ×2 (08:29→20:57)
[2023-05-11] MEDS: SOTALOL 80 MG TAB PO SCH ×2 (10:20→22:26)
[2023-05-11] MEDS: SENNOSIDES 8.6 MG TAB PO SCH ×2 (10:21→22:26)
[2023-05-11] MEDS: ESCITALOPRAM 20 MG TAB PO SCH (10:21)
[2023-05-11] MEDS: DILTIAZEM CD 120 MG CAP.ER.24H PO SCH (10:21)
--- NOTE | 2023-05-11 15:56 | P.PN ---
Subjective Progress Note Date: 05/11/23 78-year-old female with history of dementia, atrial fibrillation, possibly coronary artery disease, dyslipidemia, COPD, depression presenting after a fall. In the ED, temperature was 98.8, pulse 74, blood pressure 151/75, saturating at 96% on room air. Now requiring 4 L nasal cannula saturating at 90%. Chest x- ray shows possible infiltrate. Head CT mild ventriculomegaly, possible component of NPH, chronic small vessel ischemic disease, no acute abnormalities, possible mastoiditis/auto mastoiditis, no acute fractures. Abdomen pelvis CT shows generalized anasarca, interstitial pneumonitis, 6 mm left basilar pulmonary nodule, constipation, Fortical left sacral alar fracture, comminuted acute fracture of left pubic body. Laboratory workup shows hemoglobin 9.4, sodium 136, potassium 5.1, creatinine 0.32, urinalysis negative. Patient admitted for hypoxic respiratory failure, acute metabolic encephalopathy, fracture. 05/11 Patient seen and examined at bedside. No acute events overnight. Currently on 3L NC. General: nontoxic, no distress, appears at stated age, thin-appearing Derm: warm, dry Head: atraumatic, normocephalic, symmetric Eyes: EOMI, no lid lag, anicteric sclera ENT: Nose and ears atraumatic Mouth: no lip lesion, mucus membranes moist Cardiovascular: S1S2 reg, no murmur, no edema Lungs: clear to auscultation bilateral, no rhonchi, no rales, no wheeze, no accessory muscle use Neuro: No focal deficits, Psych: Awake and alert, oriented 1 Assessment and Plan: Acute hypoxic respiratory failure Suspected community-acquired pneumonia Fall from standing Comminuted acute fracture of left pubic Body Acute metabolic encephalopathy History of dementia Atrial fibrillation on anticoagulation Coronary artery disease Dyslipidemia COPD, not in exacerbation Depression 6 mm left basilar pulmonary nodule, repeat CT in 6 months Constipation Acute or chronic macrocytic anemia Based on my assessment of this patient, this patient meets a moderate complexity level of care. Patient has an acute diagnosis of pubic rami fracture complicated with AHRF that poses a threat to life or bodily function. Acute hypoxic respiratory failure: Repeat CXR tomorrow. Wean O2. Continue Rocephin/Azithromycin though procalcitonin is negative. Suspected community-acquired pneumonia Fall from standing: Fall precautions. PT OT consult. Plans for home with 24H supervision. Comminuted acute fracture of left pubic rami: Plans for no surgical intervention per Ortho. Acute metabolic encephalopathy: AO x 1 at baseline. History of dementia Atrial fibrillation on anticoagulation Coronary artery disease Dyslipidemia COPD, not in exacerbation Depression 6 mm left basilar pulmonary nodule, repeat CT in 6 months Constipation Acute or chronic macrocytic anemia I have reviewed the following intelligence consultant notes: I have reviewed the results of the following tests: I have ordered the following tests: CXR I have discussed the care of this patient with the following independent historian: DIscussed with RN. Discussed with case management. I have independently interpreted the following test below: I have discussed the management of this patient with the following physician: Objective - Vital Signs Vital signs: Vital Signs Temp 98.9 F 05/11/23 14:31 Pulse 78 05/11/23 15:42 Resp 17 05/11/23 14:31 BP 138/55 05/11/23 14:31 Pulse Ox 94 L 05/11/23 14:31 FiO2 21 05/11/23 08:31 Intake & Output 05/10/23 05/11/23 05/11/23 18:59 06:59 18:59 Intake Total 1225 Output Total 800 1850 Balance 425 -1850 Intake: Intake, IV Titration 900 Amount Sodium Chloride 0.9% 1, 900 000 ml @ 75 mls/hr IV . [id number] [facility] Rx#:[id number] Oral 325 Output: Urine 800 1850 Other: Voiding Method Indwelling Catheter Indwelling Catheter Indwelling Catheter - Labs CBC & Chem 7: 05/10/23 05:10 05/10/23 05:10 Labs: Microbiology - Last 24 Hours (Table) 05/09/23 14:54 Blood Culture - Preliminary Blood
[2023-05-11] MEDS: SODIUM CHLORIDE 0.9% 1,000 ML IV SCH ×2 (17:50→22:19)
[2023-05-11] MEDS: ATORVASTATIN 40 MG TAB PO SCH (22:26)
[2023-05-12] MEDS: AZITHROMYCIN 500 MG in SODIUM CHLORIDE 0.9% 250 ML IVPB SCH (03:40)
[2023-05-12] MEDS: SYMBICORT 160-4.5 MCG INHALER INHALATION SCH ×2 (08:17→21:07)
[2023-05-12] MEDS: IPRATROPIUM 0.5 MG/2.5 ML NEBU INHALATION SCH ×4 (08:17→21:07)
[2023-05-12] MEDS: SOTALOL 80 MG TAB PO SCH ×2 (08:21→20:56)
[2023-05-12] MEDS: DILTIAZEM CD 120 MG CAP.ER.24H PO SCH (08:22)
[2023-05-12] MEDS: PANTOPRAZOLE 40 MG/10 ML VIAL IV SCH (08:22)
[2023-05-12] MEDS: SENNOSIDES 8.6 MG TAB PO SCH ×2 (08:22→20:56)
[2023-05-12] MEDS: ESCITALOPRAM 20 MG TAB PO SCH (08:22)
--- NOTE | 2023-05-12 08:46 | XR ---
EXAMINATION TYPE: XR chest 1V portable DATE OF EXAM: 05/12/2023 8:40 AM COMPARISON: Chest radiographs from 05/08/2023 TECHNIQUE: XR chest 1V portable Portable AP radiograph of the chest. CLINICAL INDICATION:Female, 78 years old with history of hypoxia; FINDINGS: Patient is rotated which limits evaluation. Lungs/Pleura: Blunting of the right costophrenic angle. No pneumothorax. Chronic senescent parenchyma changes. No focal consolidation Hyperinflation. Pulmonary vascularity: Unremarkable. Heart/mediastinum: Cardiomediastinal silhouette is prominent in size. Atherosclerotic calcifications are seen in the aorta. Musculoskeletal: No acute osseous pathology. IMPRESSION: COPD changes with small right pleural effusion.
[2023-05-12] MEDS ORDERED: FUROSEMIDE 10 MG/ML 4 ML VIAL IV STA (10:28)
[2023-05-12 10:59] LABS: HCT 29.3 % (34.0-46.0); HGB 8.7 gm/dL (11.4-16.0); Hypochromasia Marked; MCH 28.7 pg (25.0-35.0); MCHC 29.7 g/dL (31.0-37.0); MCV 96.6 fL (80.0-100.0); Mean Platelet Volume 7.8; Platelet Count 176 k/uL (150-450); RBC 3.03 m/uL (3.80-5.40); RDW 15.3 % (11.5-15.5); WBC 6.3 k/uL (3.8-10.6)
[2023-05-12 11:19] LABS: African American GFR (CKD) >90 (>60 ml/min/1.73 sqM); Anion Gap 2 mmol/L; Blood Urea Nitrogen 5 mg/dL (7-17); Calcium 8.2 mg/dL (8.4-10.2); Carbon Dioxide 37 mmol/L (22-30); Chloride 100 mmol/L (98-107); Glucose 85 mg/dL (74-99); Non-African American GFR(CKD) >90 (>60 ml/min/1.73 sqM); Potassium 3.4 mmol/L (3.5-5.1); Sodium 139 mmol/L (137-145)
--- NOTE | 2023-05-12 12:56 | P.PN ---
Subjective Progress Note Date: 05/12/23 78-year-old female with history of dementia, atrial fibrillation, possibly coronary artery disease, dyslipidemia, COPD, depression presenting after a fall. In the ED, temperature was 98.8, pulse 74, blood pressure 151/75, saturating at 96% on room air. Now requiring 4 L nasal cannula saturating at 90%. Chest x- ray shows possible infiltrate. Head CT mild ventriculomegaly, possible component of NPH, chronic small vessel ischemic disease, no acute abnormalities, possible mastoiditis/auto mastoiditis, no acute fractures. Abdomen pelvis CT shows generalized anasarca, interstitial pneumonitis, 6 mm left basilar pulmonary nodule, constipation, Fortical left sacral alar fracture, comminuted acute fracture of left pubic body. Laboratory workup shows hemoglobin 9.4, sodium 136, potassium 5.1, creatinine 0.32, urinalysis negative. Patient admitted for hypoxic respiratory failure, acute metabolic encephalopathy, fracture. 05/12 Patient seen and examined at bedside. No acute events overnight. Currently on 4L NC. She is AO x 1. CXR shows small right pleural effusion. General: nontoxic, no distress, appears at stated age, thin-appearing Derm: warm, dry Head: atraumatic, normocephalic, symmetric Eyes: EOMI, no lid lag, anicteric sclera ENT: Nose and ears atraumatic Mouth: no lip lesion, mucus membranes moist Cardiovascular: S1S2 reg, no murmur, no edema Lungs: clear to auscultation bilateral, no rhonchi, no rales, no wheeze, no accessory muscle use Neuro: No focal deficits, Psych: Awake and alert, oriented 1 Assessment and Plan: Acute hypoxic respiratory failure Suspected community-acquired pneumonia Fall from standing Comminuted acute fracture of left pubic Body Acute metabolic encephalopathy History of dementia Atrial fibrillation on anticoagulation Coronary artery disease Dyslipidemia COPD, not in exacerbation Depression 6 mm left basilar pulmonary nodule, repeat CT in 6 months Constipation Acute or chronic macrocytic anemia Based on my assessment of this patient, this patient meets a moderate complexity level of care. Patient has an acute diagnosis of pubic rami fracture complicated with AHRF that poses a threat to life or bodily function. Acute hypoxic respiratory failure: Obtain Echo. Lasix 40 mg IV x 1 today. Wean O2. Continue Rocephin/Azithromycin though procalcitonin is negative. Suspected community-acquired pneumonia Fall from standing: Fall precautions. PT OT consult. Plans for home with 24H supervision. Comminuted acute fracture of left pubic rami: Plans for no surgical intervention per Ortho. Acute metabolic encephalopathy: AO x 1 at baseline. History of dementia Atrial fibrillation on anticoagulation Coronary artery disease Dyslipidemia COPD, not in exacerbation Depression 6 mm left basilar pulmonary nodule, repeat CT in 6 months Constipation Acute or chronic macrocytic anemia I have reviewed the following product development consultant notes: I have reviewed the results of the following tests: I have ordered the following tests: I have discussed the care of this patient with the following independent historian: DIscussed with RN. Discussed with case management. I have independently interpreted the following test below: I have discussed the management of this patient with the following physician: Objective - Vital Signs Vital signs: Vital Signs Temp 97.7 F 05/12/23 07:52 Pulse 70 05/12/23 07:52 Resp 19 05/12/23 07:52 BP 155/64 05/12/23 07:52 Pulse Ox 98 05/12/23 07:52 FiO2 36 05/12/23 03:55 Intake & Output 05/11/23 05/12/23 05/12/23 18:59 06:59 18:59 Output Total 1100 525 Balance -1100 -525 Output: Urine 1100 525 Other: Voiding Method Indwelling Catheter Indwelling Catheter Indwelling Catheter - Labs CBC & Chem 7: 05/12/23 10:26 05/12/23 10:30 Labs: Abnormal Lab Results - Last 24 Hours (Table) 05/12/23 05/12/23 Range/Units 10:26 10:30 RBC 3.03 L (3.80-5.40) m/uL Hgb 8.7 L (11.4-16.0) gm/dL Hct 29.3 L (34.0-46.0) % MCHC 29.7 L (31.0-37.0) g/dL Potassium 3.4 L (3.5-5.1) mmol/L Carbon Dioxide 37 H (22-30) mmol/L BUN 5 L (7-17) mg/dL Creatinine 0.28 L (0.52-1.04) mg/dL Calcium 8.2 L (8.4-10.2) mg/dL Microbiology - Last 24 Hours (Table) 05/09/23 14:54 Blood Culture - Preliminary Blood
[2023-05-12] MEDS: ATORVASTATIN 40 MG TAB PO SCH (20:56)
--- NOTE | 2023-05-13 07:04 | CA ---
Transthoracic Echo Report Name: Viridiana Conner Age: 78 Gender: F : 1945 Exam Date: 05/12/2023 13:13 Exam Location: [facility] Ht (in): 67 Wt (lb): 157 Ordering Physician: Tata Hays MD Attending/Referring Phys: Long Distance Billing Operator Christopher Viera Procedure CPT: Indications: sob Cardiac Hx: Technical Quality: Fair Contrast 1: Total Dose (mL): Contrast 2: Total Dose (mL): MEASUREMENTS (Male / Female) Normal Values 2D ECHO LV Diastolic Diameter PLAX 3.5 cm 4.2 - 5.9 / 3.9 - 5.3 cm LV Systolic Diameter PLAX 2.3 cm IVS Diastolic Thickness 1.2 cm 0.6 - 1.0 / 0.6 - 0.9 cm LVPW Diastolic Thickness 1.0 cm 0.6 - 1.0 / 0.6 - 0.9 cm LV Relative Wall Thickness 0.6 RV Internal Dim ED PLAX 2.9 cm LVOT Diameter 2.1 cm Aortic Root Diameter 2.7 cm LA Systolic Diameter LX 2.2 cm 3.0 - 4.0 / 2.7 - 3.8 cm LV Diastolic Volume MOD BP 41.6 cm??? 67 - 155 / 56 - 104 cm??? LV Systolic Volume MOD BP 15.2 cm??? 22 - 58 / 19 - 49 cm??? LV Ejection Fraction MOD BP 63.3 % >= 55 % LV Cardiac Index MOD BP 899.8 cm???/min???m??? LV Diastolic Volume MOD 4C 37.4 cm??? LV Systolic Volume MOD 4C 14.5 cm??? LV Ejection Fraction MOD 4C 61.4 % LV Cardiac Index MOD 4C 784.7 cm???/min???m??? LV Diastolic Length 4C 6.8 cm LV Systolic Length 4C 5.5 cm LV Diastolic Volume MOD 2C 44.2 cm??? LV Systolic Volume MOD 2C 16.2 cm??? LV Ejection Fraction MOD 2C 63.5 % LV Cardiac Index MOD 2C 959.6 cm???/min???m??? LV Diastolic Length 2C 6.4 cm LV Systolic Length 2C 5.4 cm LA Volume 50.0 cm??? 18 - 58 / 22 - 52 cm??? DOPPLER AV Peak Velocity 134.2 cm/s AV Peak Gradient 7.2 mmHg LVOT Peak Velocity 90.5 cm/s LVOT Peak Gradient 3.3 mmHg AV Area Cont Eq pk 2.2 cm??? MV Peak Velocity 136.1 cm/s MV Peak Gradient 7.4 mmHg MV Mean Velocity 63.5 cm/s MV Mean Gradient 2.1 mmHg MV Velocity Time Integral 39.3 cm MR Peak Velocity 652.7 cm/s MR Peak Gradient 170.4 mmHg Mitral E Point Velocity 93.4 cm/s Mitral A Point Velocity 118.2 cm/s Mitral E to A Ratio 0.8 MV Deceleration Time 351.7 ms TR Peak Velocity 355.6 cm/s TR Peak Gradient 50.6 mmHg Right Ventricular Systolic Press 56.1 mmHg PV Peak Velocity 96.5 cm/s PV Peak Gradient 3.7 mmHg FINDINGS Left Ventricle Normal LV size and wall thickness. Left ventricular ejection fraction is estimated at 50-55 %. Right Ventricle Normal right ventricular size. RVSP= 66mmhg. Right Atrium Normal right atrial size. Left Atrium Normal left atrial size. LA volume index=27ml/m2 Mitral Valve Mitral valve thickened. Moderate to severe MR. Aortic Valve Aortic valve not well visualized but grossly unremarkable. Tricuspid Valve Structurally normal tricuspid valve. Pulmonic Valve Pulmonic valve not well visualized. Mild PI. Pericardium Normal pericardium. Aorta Normal size aortic root . CONCLUSIONS Low-normal LV systolic function. The EF is 50% Severe pulmonary hypertension Moderate to severe mitral regurgitation Previewed by: Dr. Manas Chu MD (Electronically Signed) Final Date: 13 May 2023 07:03
[2023-05-13 07:09] LABS: HCT 31.1 % (34.0-46.0); HGB 9.4 gm/dL (11.4-16.0); Hypochromasia Marked; MCH 28.6 pg (25.0-35.0); MCHC 30.4 g/dL (31.0-37.0); MCV 94.4 fL (80.0-100.0); Mean Platelet Volume 8.3; Platelet Count 209 k/uL (150-450); RBC 3.29 m/uL (3.80-5.40); RDW 15.4 % (11.5-15.5); WBC 8.1 k/uL (3.8-10.6)
[2023-05-13] MEDS: IPRATROPIUM 0.5 MG/2.5 ML NEBU INHALATION SCH ×4 (08:33→22:39)
[2023-05-13] MEDS: SYMBICORT 160-4.5 MCG INHALER INHALATION SCH ×2 (08:33→22:39)
[2023-05-13] MEDS ORDERED: FUROSEMIDE 10 MG/ML 4 ML VIAL IV SCH (09:00)
[2023-05-13] MEDS: PANTOPRAZOLE 40 MG/10 ML VIAL IV SCH (09:05)
[2023-05-13] MEDS: DILTIAZEM CD 120 MG CAP.ER.24H PO SCH (09:06)
[2023-05-13] MEDS: ESCITALOPRAM 20 MG TAB PO SCH (09:06)
[2023-05-13] MEDS: SENNOSIDES 8.6 MG TAB PO SCH ×2 (09:06→23:01)
[2023-05-13] MEDS: SOTALOL 80 MG TAB PO SCH ×2 (09:07→23:01)
[2023-05-13 10:16] LABS: African American GFR (CKD) >90 (>60 ml/min/1.73 sqM); Blood Urea Nitrogen 5 mg/dL (7-17); Calcium 8.4 mg/dL (8.4-10.2); Chloride 92 mmol/L (98-107); Glucose 75 mg/dL (74-99); Non-African American GFR(CKD) >90 (>60 ml/min/1.73 sqM); Potassium 3.2 mmol/L (3.5-5.1); Sodium 139 mmol/L (137-145)
[2023-05-13 10:23] LABS: Anion Gap 5 mmol/L
[2023-05-13 10:42] LABS: Carbon Dioxide 42 mmol/L (22-30)
[2023-05-13] MEDS ORDERED: POTASSIUM CHLORIDE ER 20 MEQ TAB.ER PO STA (11:28)
[2023-05-13 11:47] LABS: ABG Base Excess 20.8 mmol/L; ABG PH 7.41 (7.35-7.45); ABG PO2 102 mmHg (83-108); ABG TCO2 48 mmol/L (19-24); Allen Test Performed? Yes
[2023-05-13 11:51] LABS: ABG HCO3 46 mmol/L (21-25); ABG PCO2 73 mmHg (35-45)
[2023-05-13] MEDS ORDERED: POTASSIUM CHLORIDE 10 MEQ in WATER FOR INJECTION 1 100ML.BAG IVPB SCH (12:00)
--- NOTE | 2023-05-13 14:18 | P.PN ---
Subjective Progress Note Date: 05/13/23 78-year-old female with history of dementia, atrial fibrillation, possibly coronary artery disease, dyslipidemia, COPD, depression presenting after a fall. In the ED, temperature was 98.8, pulse 74, blood pressure 151/75, saturating at 96% on room air. Now requiring 4 L nasal cannula saturating at 90%. Chest x- ray shows possible infiltrate. Head CT mild ventriculomegaly, possible component of NPH, chronic small vessel ischemic disease, no acute abnormalities, possible mastoiditis/auto mastoiditis, no acute fractures. Abdomen pelvis CT shows generalized anasarca, interstitial pneumonitis, 6 mm left basilar pulmonary nodule, constipation, Fortical left sacral alar fracture, comminuted acute fracture of left pubic body. Laboratory workup shows hemoglobin 9.4, sodium 136, potassium 5.1, creatinine 0.32, urinalysis negative. Patient admitted for hypoxic respiratory failure, acute metabolic encephalopathy, fracture. 05/12 Patient seen and examined at bedside. No acute events overnight. Currently on 4L NC. She is AO x 1. CXR shows small right pleural effusion. 05/13 Patient was seen and examined. Remains on 4L NC. Mentation appears improved today. She is more awake. AO x 1. CBC shows Hg 9.4. BMP shows K 3.2, Cl 92, bicarb 42, BUN 5, Cr 0.27. Echo shows EF 50% with severe pulmonary HTN and moderate to severe MR. General: nontoxic, no distress, appears at stated age, thin-appearing Derm: warm, dry Head: atraumatic, normocephalic, symmetric Eyes: EOMI, no lid lag, anicteric sclera ENT: Nose and ears atraumatic Mouth: no lip lesion, mucus membranes moist Cardiovascular: S1S2 reg, no murmur, no edema Lungs: clear to auscultation bilateral, no rhonchi, no rales, no wheeze, no accessory muscle use Neuro: No focal deficits, Psych: Awake and alert, oriented 1 Assessment and Plan: Acute hypoxic respiratory failure Suspected community-acquired pneumonia Fall from standing Comminuted acute fracture of left pubic Body Acute metabolic encephalopathy History of dementia Atrial fibrillation on anticoagulation Coronary artery disease Dyslipidemia COPD, not in exacerbation Depression 6 mm left basilar pulmonary nodule, repeat CT in 6 months Constipation Acute or chronic macrocytic anemia Based on my assessment of this patient, this patient meets a moderate complexity level of care. Patient has an acute diagnosis of pubic rami fracture complicated with AHRF that poses a threat to life or bodily function. Acute hypoxic respiratory failure: Echo as above. Discontinue Lasix. ABG shows metabolic alkalosis with respiratory acidosis. BiPAP at night. Wean O2. Completed course of Rocephin/Azithromycin though procalcitonin is negative. Pulmonology consulted for further management of hypoxia. Suspected community-acquired pneumonia Fall from standing: Fall precautions. PT OT consult. Plans for home with 24H supervision. Comminuted acute fracture of left pubic rami: Plans for no surgical intervention per Ortho. Acute metabolic encephalopathy: AO x 1 at baseline. History of dementia Atrial fibrillation on anticoagulation Coronary artery disease Dyslipidemia COPD, not in exacerbation Depression 6 mm left basilar pulmonary nodule, repeat CT in 6 months Constipation Acute or chronic macrocytic anemia I have reviewed the following software developer consultant notes: I have reviewed the results of the following tests: CBC, BMP, ABG I have ordered the following tests: I have discussed the care of this patient with the following independent historian: I have independently interpreted the following test below: I have discussed the management of this patient with the following physician: Objective - Vital Signs Vital signs: Vital Signs Temp 97.9 F 05/13/23 08:00 Pulse 76 05/13/23 12:05 Resp 19 05/13/23 08:00 BP 179/68 05/13/23 08:00 Pulse Ox 94 L 05/13/23 08:35 FiO2 36 05/13/23 03:57 Intake & Output 05/12/23 05/13/23 05/13/23 18:59 06:59 18:59 Output Total 2250 950 Balance -2250 -950 Output: Urine 2250 950 Other: Voiding Method Indwelling Catheter Indwelling Catheter Indwelling Catheter - Labs CBC & Chem 7: 05/13/23 06:41 05/13/23 06:41 Labs: Abnormal Lab Results - Last 24 Hours (Table) 05/13/23 05/13/23 05/13/23 Range/Units 06:41 06:41 11:45 RBC 3.29 L (3.80-5.40) m/uL Hgb 9.4 L (11.4-16.0) gm/dL Hct 31.1 L (34.0-46.0) % MCHC 30.4 L (31.0-37.0) g/dL ABG pCO2 73 H* (35-45) mmHg ABG HCO3 46 H* (21-25) mmol/L ABG Total CO2 48 H (19-24) mmol/L ABG O2 Saturation 98.0 H (94-97) % Potassium 3.2 L (3.5-5.1) mmol/L Chloride 92 L (98-107) mmol/L Carbon Dioxide 42 H* (22-30) mmol/L BUN 5 L (7-17) mg/dL Creatinine 0.27 L (0.52-1.04) mg/dL Microbiology - Last 24 Hours (Table) 05/09/23 14:54 Blood Culture - Preliminary Blood
[2023-05-13] MEDS: ATORVASTATIN 40 MG TAB PO SCH (23:01)
[2023-05-14 07:40] VITALS: RESP 15
[2023-05-14] MEDS: PANTOPRAZOLE 40 MG/10 ML VIAL IV SCH (07:51)
[2023-05-14] MEDS: DILTIAZEM CD 120 MG CAP.ER.24H PO SCH (07:52)
[2023-05-14] MEDS: SOTALOL 80 MG TAB PO SCH (07:52)
[2023-05-14] MEDS: SENNOSIDES 8.6 MG TAB PO SCH (07:52)
[2023-05-14] MEDS: ESCITALOPRAM 20 MG TAB PO SCH (07:52)
[2023-05-14] MEDS: SYMBICORT 160-4.5 MCG INHALER INHALATION SCH (08:02)
[2023-05-14] MEDS: IPRATROPIUM 0.5 MG/2.5 ML NEBU INHALATION SCH ×3 (08:02→15:32)
[2023-05-14 09:24] LABS: African American GFR (CKD) >90 (>60 ml/min/1.73 sqM); Blood Urea Nitrogen 8 mg/dL (7-17); Calcium 8.6 mg/dL (8.4-10.2); Chloride 91 mmol/L (98-107); Glucose 95 mg/dL (74-99); Non-African American GFR(CKD) >90 (>60 ml/min/1.73 sqM); Potassium 3.9 mmol/L (3.5-5.1); Sodium 137 mmol/L (137-145)
[2023-05-14 09:30] LABS: Anion Gap 4 mmol/L
[2023-05-14 09:34] LABS: Carbon Dioxide 42 mmol/L (22-30)
--- NOTE | 2023-05-14 12:38 | P.DS ---
Providers Date of admission: 05/09/23 02:19 Expected date of discharge: 05/14/23 Attending physician: Mell Hyde DO Consults: 05/09/23 02:19 Consult Physician Routine Consulting Provider: Lemuel Hall Consult Reason/Comments: chronic pubic rami fracture Do you want consulting provider notified?: Already Contacted Primary care physician: Stated None Hospital Course: 78-year-old female with history of dementia, atrial fibrillation, possibly coronary artery disease, dyslipidemia, COPD, depression presenting after a fall. In the ED, temperature was 98.8, pulse 74, blood pressure 151/75, saturating at 96% on room air. Now requiring 4 L nasal cannula saturating at 90%. Chest x- ray shows possible infiltrate. Head CT mild ventriculomegaly, possible component of NPH, chronic small vessel ischemic disease, no acute abnormalities, possible mastoiditis/auto mastoiditis, no acute fractures. Abdomen pelvis CT shows generalized anasarca, interstitial pneumonitis, 6 mm left basilar pulmonary nodule, constipation, Fortical left sacral alar fracture, comminuted acute fracture of left pubic body. Laboratory workup shows hemoglobin 9.4, sodium 136, potassium 5.1, creatinine 0.32, urinalysis negative. Patient admitted for hypoxic respiratory failure, acute metabolic encephalopathy, fracture. Orthopedic surgery evaluated the patient and recommended conservative management and no surgical intervention. 05/12 Patient seen and examined at bedside. No acute events overnight. Currently on 4L NC. She is AO x 1. CXR shows small right pleural effusion. 05/13 Patient was seen and examined. Remains on 4L NC. Mentation appears improved today. She is more awake. AO x 1. CBC shows Hg 9.4. BMP shows K 3.2, Cl 92, bicarb 42, BUN 5, Cr 0.27. Echo shows EF 50% with severe pulmonary HTN and moderate to severe MR. 05/14 Patient was seen and examined. Discussed with case management yesterday it appears that patient is on 5L NC at home. She is currently AOx1. She has co mpleted a course of Rocephin/Azithromycin for PNA despite a negative procalcitonin. ABG shows metabolic alkalosis with respiratory acidosis. (pH 7.41, pCO2 73, bicarb 42). She also uses BiPAP at night. She is breathing comofortably. PT has re-evaluated the patient and recommends SNF. Patient is accepted to [facility]. Plans for discharge today. Pertinent studies include rib x-ray, chest x-ray, head CT, C-spine CT, hip and pelvis x-ray, CT AP, pelvic CT. General: nontoxic, no distress, appears at stated age, thin-appearing Derm: warm, dry Head: atraumatic, normocephalic, symmetric Eyes: EOMI, no lid lag, anicteric sclera ENT: Nose and ears atraumatic Mouth: no lip lesion, mucus membranes moist Cardiovascular: S1S2 reg, no murmur, no edema Lungs: clear to auscultation bilateral, no rhonchi, no rales, no wheeze, no accessory muscle use Neuro: No focal deficits, Psych: Awake and alert, oriented 1 Discharge diagnosis: Chronic hypercarbic hypoxic respiratory failure Suspected community-acquired pneumonia Fall from standing Comminuted acute fracture of left pubic Body Acute metabolic encephalopathy History of dementia Atrial fibrillation on anticoagulation Coronary artery disease Dyslipidemia COPD, not in exacerbation Depression 6 mm left basilar pulmonary nodule, repeat CT in 6 months Constipation Acute or chronic macrocytic anemia This complex discharge took 35 minutes to complete. Patient Condition at Discharge: Stable Plan - Discharge Summary New Discharge Prescriptions: New Ipratropium-Albuterol Nebulize [Duoneb 0.5 mg-3 mg/3 ml Soln] 3 ml INHALATION RT-QID PRN each PRN Reason: Shortness Of Breath Or Wheezing Continue Albuterol Inhaler [Ventolin Hfa Inhaler] 2 puff INHALATION RT-Q6H PRN PRN Reason: Shortness Of Breath Escitalopram [Lexapro] 20 mg PO DAILY Sotalol [Betapace] 40 mg PO Q12H Atorvastatin [Lipitor] 40 mg PO HS Apixaban [Eliquis] 5 mg PO BID Budesonide/Formoterol Fumarate [Symbicort 160-4.5 Mcg Inhaler] 2 puff INHALATION RT-BID dilTIAZem HCL 120 mg PO DAILY Omeprazole 20 mg PO DAILY Solifenacin Succinate 10 mg PO DAILY Tiotropium [address] [Spiriva Handihaler] 1 puff INHALATION RT-DAILY Discharge Medication List Albuterol Inhaler [Ventolin Hfa Inhaler] 2 puff INHALATION RT-Q6H PRN 05/09/23 [History] Apixaban [Eliquis] 5 mg PO BID 05/09/23 [History] Atorvastatin [Lipitor] 40 mg PO HS 05/09/23 [History] Budesonide/Formoterol Fumarate [Symbicort 160-4.5 Mcg Inhaler] 2 puff INHALATION RT-BID 05/09/23 [History] Escitalopram [Lexapro] 20 mg PO DAILY 05/09/23 [History] Omeprazole 20 mg PO DAILY 05/09/23 [History] Solifenacin Succinate 10 mg PO DAILY 05/09/23 [History] Sotalol [Betapace] 40 mg PO Q12H 05/09/23 [History] Tiotropium [address] [Spiriva Handihaler] 1 puff INHALATION RT-DAILY 05/09/23 [History] dilTIAZem HCL 120 mg PO DAILY 05/09/23 [History] Ipratropium-Albuterol Nebulize [Duoneb 0.5 mg-3 mg/3 ml Soln] 3 ml INHALATION RT-QID PRN each 05/14/23 [Rx] Follow up Appointment(s)/Referral(s): Fatou Ziegler, DAVID [Nurse Practitioner] - 2 Weeks None,Stated [Primary Care Provider] - 1-2 days Residential Home,Health [NON-STAFF] - As Needed Patient Instructions/Handouts: Pelvic Fracture (GEN) Activity/Diet/Wound Care/Special Instructions: Please follow up with your primary care provider. Return to the emergency department for new or worsening symptoms. Discharge Disposition: TRANSFER TO SNF/ECF
[2023-05-14 13:40] VITALS: BP 128/62; TEMP 98
[2023-05-14 13:42] VITALS: BMI 24.5
[2023-05-14 15:40] VITALS: PULSE 68
== END 2023-05-14 15:40 | DRG 193 ==
LOC: EC 19:54 → 4SSUR 05-09 02:19
PROVIDERS: ADMIT Internal Medicine; ATTEND Internal Medicine
DX: J18.9 Pneumonia, unspecified organism (principal); G93.41 Metabolic encephalopathy; J96.21 Acute and chronic respiratory failure with hypoxia; S32.119A Unspecified Zone I fracture of sacrum, initial encounter for closed fracture; S32.592A Other specified fracture of left pubis, initial encounter for closed fracture; J96.12 Chronic respiratory failure with hypercapnia; G91.2 (Idiopathic) normal pressure hydrocephalus; F03.C3 Unspecified dementia, severe, with mood disturbance; E87.4 Mixed disorder of acid-base balance; I27.20 Pulmonary hypertension, unspecified; I34.0 Nonrheumatic mitral (valve) insufficiency; G93.89 Other specified disorders of brain; E78.5 Hyperlipidemia, unspecified; J44.9 Chronic obstructive pulmonary disease, unspecified; K59.00 Constipation, unspecified; D53.9 Nutritional anemia, unspecified; R91.1 Solitary pulmonary nodule; F32.A Depression, unspecified; I25.10 Atherosclerotic heart disease of native coronary artery without angina pectoris; I48.91 Unspecified atrial fibrillation; W18.30XA Fall on same level, unspecified, initial encounter; Z79.51 Long term (current) use of inhaled steroids; Z79.01 Long term (current) use of anticoagulants; Z88.6 Allergy status to analgesic agent
CPT/HCPCS: 36415; 36600; 51702; 70450; 71045; 72125; 72193; 73502; 74177; 80048; 80053; 81003; 82607; 82746; 82805; 83605; 83735; 84100; 84145; 84443; 85025; 85027; 87040; 93306; 94640; 94660; 94760; 96365; 96367; 96375; 99285